=== PATIENT | male | born 1970 | race Caucasian/White ===

== ENCOUNTER 2020-09-07 08:32 | Emergency (ER) | payer BC ==
[2020-09-07 08:48] VITALS: BP 140/78; PULSE 72; TEMP 99.1; BMI 21.4
== END 2020-09-07 11:32 | disposition home or self-care (01) ==
LOC: FER 08:32
DX: R07.89 Other chest pain (principal)
CPT/HCPCS: 36415; 71045-TC-FY; 82550; 82553; 84484; 93005; 99284-25